=== PATIENT | male | born 1960 | race Caucasian/White ===

== ENCOUNTER 2016-11-15 17:56 | Observation (INO) | payer MEDICARE, MEDICAID ==
[2016-11-15] MEDS ORDERED: Morphine 2 MG/ML Syringe IVPUSH ONE (18:08)
--- NOTE | 2016-11-15 18:09 | EDM.PDOC ---
ED HPI GENERAL MEDICAL PROBLEM - General Chief Complaint: Chest Pain Stated Complaint: Chest pain going into L arm Time Seen by Provider: 11/15/16 17:56 Source of Information: Reports: Patient History Limitations: Reports: No Limitations - History of Present Illness INITIAL COMMENTS - FREE TEXT/NARRATIVE: According to patient he has been having precardial chest pain and left shoulder pain for past 1 hr , around 5 PM today. He just had his supper and was sitting on the chair when the pain started.He rates his pain at 8/10. Pain worsen with deep breathing and applying pressure over left chest. Pt claims that he does have history of CAD and has had 2 stent placement in 2010. He did take one S/l nitro 0.4mg and pain was not better and hence here. Pain elicited by cough and deep breathing. No fever or chills. No sweating shortness of breath or diaphoresis. Pt does have mild cough which is chronic and smokes cigarettes and marijuana Onset: Today Onset Date: 11/15/16 Onset Time: 17:00 Location: Reports: Chest Quality: Reports: Ache Severity: Moderate Improves with: Reports: None Worsens with: Reports: None Associated Symptoms: Reports: Chest Pain, Cough. Denies: Confusion, Diaphoresis , Fever/Chills, Headaches, Nausea/Vomiting, Rash, Seizure, Shortness of Breath, Syncope, Weakness Treatments [employer]MENT [employer]CH[employer]ICIAN: Reports: Nitroglycerin - Related Data Allergies Allergy/AdvReac Type Severity Reaction Status Date / Time nickel Allergy Hives Verified 02/06/16 15:21 Penicillins Allergy Rash Verified 02/06/16 15:21 aspirin AdvReac Other Verified 02/06/16 15:21 Home Meds: Home Meds Diltiazem HCl [Cardizem LA] 120 mg PO DAILY 02/06/16 [History] Liothyronine Sodium 25 mcg PO DAILY 02/06/16 [History] Metoprolol Tartrate 50 mg PO BID 02/06/16 [History] Mirtazapine 15 mg PO DAILY 02/06/16 [History] Nitroglycerin [IJP: Nitroglycerin] 0.4 mg SL ASDIRECTED 02/06/16 [History] Sertraline HCl 200 mg PO DAILY 02/06/16 [History] Valsartan/Hydrochlorothiazide [Valsartan-Hctz 320-25 mg Tab] 25 - 320 mg PO DAILY 02/06/16 [History] atorvaSTATin Calcium [Atorvastatin Calcium] 20 mg PO DAILY 02/06/16 [History] buPROPion HCl [Wellbutrin Xl] 300 mg PO DAILY 02/06/16 [History] Past Medical History Cardiovascular History: Reports: [place], Stents Gastrointestinal History: Reports: Other (See Below) Other Gastrointestinal History: heartburn Psychiatric History: Reports: Depression Other Psychiatric History: Has had ECT treatments in [place] Endocrine/Metabolic History: Reports: Diabetes, Type II - Past Surgical History HEENT Surgical History: Reports: Tonsillectomy Cardiovascular Surgical History: Reports: None Social & Family History - Family History Cardiac: Reports: Afib, [place], Stent GI: Reports: Diverticulitis, Other (See Below) Other GI Family History: appy : Reports: None OBGYN: Reports: None Psychiatric: Reports: Anxiety, Depression Endocrine/Metabolic: Reports: Diabetes, type II - Tobacco Use Smoking Status *Q: Current Every Day Smoker Years of Tobacco use: 45 Packs/Tins Daily: 1 - Recreational Drug Use Recreational Drug Use: Yes Drug Use in Last 12 Months: Yes Recreational Drug Type: Reports: Marijuana/Hashish Recreational Drug Use Frequency: Monthly ED ROS GENERAL - Review of Systems Review Of Systems: See Below Constitutional: Denies: Fever, Chills, Fatigue, Night Sweats, Diaphoresis HEENT: Denies: Rhinitis, Sinus Problem, Vision Change Respiratory: Reports: Pleuritic Chest Pain, Cough. Denies: Shortness of Breath , Wheezing, Sputum Cardiovascular: Reports: Chest Pain. Denies: Lightheadedness GI/Abdominal: Denies: Abdominal Pain, Nausea, Vomiting : Denies: Dysuria, Flank Pain, Frequency Musculoskeletal: Reports: Shoulder Pain (left ). Denies: Joint Pain, Joint Swelling Skin: Denies: Pruritis, Rash Neurological: Denies: Confusion, Dizziness, Headache, Seizure, Syncope, Weakness ED EXAM, GENERAL - Physical Exam Exam: See Below Exam Limited By: No Limitations General Appearance: Alert, WD/WN, No Apparent Distress, Other (pt appear comfortable rates his pain at 8/10) Eye Exam: Bilateral Eye: EOMI, PERRL Ears: Normal External Exam, Normal Canal, Hearing Grossly Normal, Normal TMs Ear Exam: Bilateral Ear: Auricle Normal, Canal Normal, TM normal Nose: Normal Inspection, Normal Mucosa, No Blood Throat/Mouth: Normal Inspection, Normal Lips, Normal Teeth, Normal Gums, Normal Oropharynx, Normal Voice, No Airway Compromise Head: Atraumatic, Normocephalic Neck: Normal Inspection, Supple, Non-Tender, Full Range of Motion Respiratory/Chest: No Respiratory Distress, Lungs Clear, Normal Breath Sounds, No Accessory Muscle Use, Other (Chest is tender over the lower costochondral junction to pressure.) Cardiovascular: Normal Peripheral Pulses, Regular Rate, Rhythm, No Edema, No Gallop, No JVD, No Murmur, No Rub Peripheral Pulses: 2+: Carotid (L), Carotid (R), Radial (L), Radial (R) GI/Abdominal: Normal Bowel Sounds, Soft, Non-Tender, No Organomegaly, No Distention, No Abnormal Bruit, No Mass Extremities: Normal Inspection, Normal Range of Motion, Non-Tender, Normal Capillary Refill, No Pedal Edema Neurological: Alert, Oriented, CN II-XII Intact, Normal Cognition, Normal Gait, Normal Reflexes, No Motor/Sensory Deficits Skin Exam: Warm, Intact EKG INTERPRETATION EKG Date: 11/15/16 Rhythm: NSR [place]: Normal P-Wave: Present QRS: Normal ST-T: Normal QT: Normal Course - Vital Signs Text/Narrative:: EKG is in normal sinus rhythm. His vitals are stable. He does have elicitable chest pain with pressure over the left lower sterno-chondral junctions and pain worsens with deep breathing. he probably has costo-chondritis. He did receive Morphine 4mg IV and that did help with pain, now rate his pain at 5/10. His CBC and CMP are normal his troponin is negative. Considering that he has CAD and also has had stent placement in the past,will admit for observation and repeat second set of troponin in 6 hrs and followup. Last Recorded V/S: Last Vital Signs Temp 98 F 11/15/16 18:42 Pulse 60 11/15/16 18:42 Resp 20 11/15/16 18:42 BP 143/90 H 11/15/16 18:15 Pulse Ox 97 11/15/16 18:42 - Orders/Labs/Meds Orders: Active Orders 24 hr Category Date Time Status EKG Documentation Completion [RC] ASDIRECTED Care 11/15/16 18:04 Active Chest 1V Frontal [CR] Stat Exams 11/15/16 18:04 Taken Labs: Laboratory Tests 11/15/16 11/15/16 11/15/16 Range/Units 18:00 18:00 18:00 WBC 8.8 D (4.0-11.0) K/uL RBC 5.63 (4.50-6.50) M/uL Hgb 17.0 (13.0-18.0) g/dL Hct 48.7 (40.0-54.0) % MCV 87 (76-96) fL MCH 30.2 (27.0-32.0) pg MCHC 34.9 (31.0-35.0) g/dL RDW 14.6 (11.0-16.0) % Plt Count 203 (150-400) K/uL MPV 8.8 (6.0-10.0) fL Neut % (Auto) 58.8 (45.0-70.0) % Lymph % (Auto) 31.1 (20.0-40.0) % [place] % (Auto) 6.8 (3.0-10.0) % Eos % (Auto) 2.3 (1.0-5.0) % Baso % (Auto) 1.0 H (0.0-0.5) % Neut # (Auto) 5.15 (2.00-7.50) K/uL Lymph # (Auto) 2.72 (1.50-4.00) K/uL [place] # (Auto) 0.60 (0.20-0.80) K/uL Eos # (Auto) 0.20 (0.04-0.40) K/uL Baso # (Auto) 0.09 (0.02-0.10) K/uL PT 10.5 (9.0-11.5) sec INR 1.0 (1.0-3.5) APTT 22.8 L (27.0-35.0) SECONDS Sodium 136 (136-145) mmol/L Potassium 3.4 L (3.5-5.1) mmol/L Chloride 99 (98-107) mmol/L Carbon Dioxide 27.4 (21.0-32.0) mmol/L Anion Gap 13.0 (5.0-15.0) mmol/L BUN 19 (8-26) mg/dL Creatinine 1.27 (0.70-1.30) mg/dL Est Cr Clr Drug Dosing 62.09 mL/min Estimated GFR (MDRD) 58 L (>60) MLS/MIN BUN/Creatinine Ratio 15.0 (6-25) Glucose 169 H D (74-100) mg/dL Calcium 9.0 (8.5-10.1) mg/dL Total Bilirubin 0.3 (0.0-1.0) mg/dL AST 56 H (15-37) U/L ALT 80 H (12-78) U/L Alkaline Phosphatase 123 H (46-116) U/L Troponin I (0.000-0.060) ng/mL Total Protein 7.1 (6.4-8.2) g/dL Albumin 3.6 (3.4-5.0) g/dL Globulin 3.5 (2.2-4.2) g/dL Albumin/Globulin Ratio 1.0 (0.8-2.0) //17 Range/Units 18:00 WBC (4.0-11.0) K/uL RBC (4.50-6.50) M/uL Hgb (13.0-18.0) g/dL Hct (40.0-54.0) % MCV (76-96) fL MCH (27.0-32.0) pg MCHC (31.0-35.0) g/dL RDW (11.0-16.0) % Plt Count (150-400) K/uL MPV (6.0-10.0) fL Neut % (Auto) (45.0-70.0) % Lymph % (Auto) (20.0-40.0) % [place] % (Auto) (3.0-10.0) % Eos % (Auto) (1.0-5.0) % Baso % (Auto) (0.0-0.5) % Neut # (Auto) (2.00-7.50) K/uL Lymph # (Auto) (1.50-4.00) K/uL [place] # (Auto) (0.20-0.80) K/uL Eos # (Auto) (0.04-0.40) K/uL Baso # (Auto) (0.02-0.10) K/uL PT (9.0-11.5) sec INR (1.0-3.5) APTT (27.0-35.0) SECONDS Sodium (136-145) mmol/L Potassium (3.5-5.1) mmol/L Chloride (98-107) mmol/L Carbon Dioxide (21.0-32.0) mmol/L Anion Gap (5.0-15.0) mmol/L BUN (8-26) mg/dL Creatinine (0.70-1.30) mg/dL Est Cr Clr Drug Dosing mL/min Estimated GFR (MDRD) (>60) MLS/MIN BUN/Creatinine Ratio (6-25) Glucose (74-100) mg/dL Calcium (8.5-10.1) mg/dL Total Bilirubin (0.0-1.0) mg/dL AST (15-37) U/L ALT (12-78) U/L Alkaline Phosphatase (46-116) U/L Troponin I < 0.017 (0.000-0.060) ng/mL Total Protein (6.4-8.2) g/dL Albumin (3.4-5.0) g/dL Globulin (2.2-4.2) g/dL Albumin/Globulin Ratio (0.8-2.0) Meds: Medications Discontinued Medications Generic Name Dose Route Start Last Admin Trade Name Arunq PRN Reason Stop Dose Admin Morphine Sulfate 4 mg 11/15/16 18:08 Morphine IVPUSH 11/15/16 18:09 ONETIME ONE Departure - Departure Time of Disposition: 18:45 Disposition: Refer to Observation Condition: Fair Clinical Impression: Chest pain - Discharge Information - Problem List & Annotations (1) Chest pain SNOMED Code(s): 10378268 Code(s): R07.9 - CHEST PAIN, UNSPECIFIED Status: Acute Current Visit: Yes - Problem List Review Problem List Initiated/Reviewed/Updated: Yes - My Orders Last 24 Hours: My Active Orders 11/15/16 18:04 EKG Documentation Completion [RC] ASDIRECTED Chest 1V Frontal [CR] Stat - Assessment/Plan Last 24 Hours: My Active Orders 11/15/16 18:04 EKG Documentation Completion [RC] ASDIRECTED Chest 1V Frontal [CR] Stat Assessment:: Chest pain with costochondritis Plan: EKG is in normal sinus rhythm. His vitals are stable. He does have elicitable chest pain with pressure over the left lower sterno-chondral junctions and pain worsens with deep breathing. he probably has costo-chondritis. He did receive Morphine 4mg IV and that did help with pain, now rate his pain at 5/10. His CBC and CMP are normal his troponin is negative. Considering that he has CAD and also has had stent placement in the past,will admit for observation and repeat second set of troponin in 6 hrs and followup.
[2016-11-15] MEDS ORDERED: Sodium Chloride 0.9% 10 ML Syringe FLUSH PRN (18:50)
[2016-11-15] MEDS ORDERED: Heparin Sodium 5,000 Units/ML Vial ONE (23:15)
[2016-11-15] MEDS ORDERED: Heparin Sodium 1,000 Units/ML 10 ML MDV ONE (23:16)
[2016-11-15] MEDS ORDERED: Aspirin 81 MG Tab.Chew ONE (23:19)
[2016-11-15] MEDS ORDERED: Clopidogrel 75 MG Tab ONE (23:27)
[2016-11-15] MEDS ORDERED: Metoprolol Tartrate 25 MG Tab ONE (23:28)
[2016-11-15] MEDS ORDERED: Heparin Sodium 5,000 UNITS/0.5 ML Syringe IVPUSH ONE (23:38)
[2016-11-15] MEDS ORDERED: Clopidogrel 75 MG Tab PO ONE (23:38)
[2016-11-15] MEDS ORDERED: Heparin Sodium/D5W 25,000 UNITS/500 ML BAG IV SCH (23:45)
--- NOTE | 2016-11-15 23:56 | PCM.DCSUM1 ---
Discharge Summary - Hospital Course Free Text/Narrative:: Pt was admitted for observation. His initial troponin was negative and his EKG in Sinus rhythm.He does have elicitable chest pain over the left side of the chest which does appear like costochondritis. But considering his history of CAD with stent placement and post prandial chest pain, I did admit him for serial troponins. His pain did improve with Morphine 4mg IV to 5/10 and later was down to 2-3/10. He has been in sinus rhythm on the monitor His repeat troponin at 11 pm is elevated at 0.9 His repeat EKG is in normal sinus rhythm. His vitals are stable. He is in sinus rhythm all through the hospital stay.Pt has Non-stemi. Pt did receive plavix 300mg. Metoprolol 12.5mg oral. He did receive heparin 5000 units Iv followed by 1000units /hr.I did call [facility], discuss patient with hospitalist , who has agreed to accept patient. Pt is hemodynamically stable for transfer. He will be transferrred by [facility] ambulance . Further care as per Dr. Saunders. Brief History: 56 year old male presented to emerency room with chest pain around 5 pm today. Intial torponin negative. Admitted under observation for serial cardiac enzymes. - Discharge Data Discharge Date: 11/15/16 Discharge Disposition: DC/Tfer to Acute Hospital 02 Condition: Serious - Discharge Diagnosis/Problem(s) (1) Chest pain SNOMED Code(s): 07475181 ICD Code: R07.9 - CHEST PAIN, UNSPECIFIED Status: Acute Current Visit: Yes - Patient Instructions Diet: NPO Activity: Bedrest - Discharge Plan Home Medications: Home Meds Diltiazem HCl [Cardizem LA] 120 mg PO DAILY 02/06/16 [History] Liothyronine Sodium 25 mcg PO DAILY 02/06/16 [History] Metoprolol Tartrate 50 mg PO BID 02/06/16 [History] Mirtazapine 15 mg PO DAILY 02/06/16 [History] Nitroglycerin [IJP: Nitroglycerin] 0.4 mg SL ASDIRECTED 02/06/16 [History] Sertraline HCl 200 mg PO DAILY 02/06/16 [History] Valsartan/Hydrochlorothiazide [Valsartan-Hctz 320-25 mg Tab] 25 - 320 mg PO DAILY 02/06/16 [History] atorvaSTATin Calcium [Atorvastatin Calcium] 20 mg PO DAILY 02/06/16 [History] buPROPion HCl [Wellbutrin Xl] 300 mg PO DAILY 02/06/16 [History] Forms: ED Department Discharge - Discharge Summary/Plan Comment DC Time >30 min.: Yes Discharge Summary/Plan Comment: Pt has been transferred by road ambulance to [facility] under car of - General Info Date of Service: 11/16/16 Functional Status: Reports: pain controlled - Review of Systems General: Denies: Fever, Weakness HEENT: Denies: visual changes Pulmonary: Denies: shortness of breath, pleuritic chest pain, cough, sputum, hemoptysis, wheezing Cardiovascular: Reports: Chest Pain. Denies: Lightheadedness Gastrointestinal: Denies: Abdominal pain, Nausea, Vomiting Genitourinary: Denies: dysuria, frequency Musculoskeletal: Denies: joint pain, joint swelling Skin: Denies: pruritis, rash Neurological: Denies: Confusion, Headache, Seizure - Patient Data Vitals - Most Recent: Last Vital Signs Temp 98.1 F 11/15/16 18:50 Pulse 65 11/15/16 18:50 Resp 18 11/15/16 18:50 BP 146/87 H 11/15/16 18:50 Pulse Ox 100 11/15/16 18:50 Weight - Most Recent: 113.398 kg Lab Results - Last 24 hrs: Laboratory Results - last 24 hr 11/15/16 Range/Units 22:45 Troponin I 0.955 H* D (0.000-0.060) ng/mL Med Orders - Current: Current Medications Heparin Sodium/Dextrose (Heparin 25,000 Units In D5w 500 Ml) 25,000 units in 500 mls @ 2,267.962 mls/hr IV STAT MILENA; 1,000 UNITS/KG/HR PRN Reason: Protocol Sodium Chloride (Saline Flush) 10 ml FLUSH ASDIRECTED PRN PRN Reason: Keep Vein Open Discontinued Medications Aspirin (Aspirin) Confirm Administered Dose 324 mg .ROUTE .STK-MED ONE Stop: 11/15/16 23:20 Clopidogrel Bisulfate (Plavix) Confirm Administered Dose 75 mg .ROUTE .STK-MED ONE Stop: 11/15/16 23:28 Clopidogrel Bisulfate (Plavix) 300 mg PO ONETIME ONE Stop: 11/15/16 23:39 Heparin Sodium (Porcine) (Heparin Sodium) Confirm Administered Dose 5,000 units .ROUTE .STK-MED ONE Stop: 11/15/16 23:16 Heparin Sodium (Porcine) (Heparin Sodium) Confirm Administered Dose 10,000 units .ROUTE .STK-MED ONE Stop: 11/15/16 23:17 Heparin Sodium (Porcine) (Heparin Sodium) 5,000 units IVPUSH ONETIME ONE Stop: 11/15/16 23:39 Metoprolol Tartrate (Lopressor) Confirm Administered Dose 25 mg .ROUTE .STK-MED ONE Stop: 11/15/16 23:29 Morphine Sulfate (Morphine) 4 mg IVPUSH ONETIME ONE Stop: 11/15/16 18:09 - Exam Quality Assessment: Reports: supplemental oxygen General: Reports: alert, oriented HEENT: Reports: Pupils equal, Pupils reactive, EOMI, Mucous membr. moist/pink Neck: Reports: supple Lungs: Reports: Clear to auscultation, Normal respiratory effort Cardiovascular: Reports: Regular Rate, Regular Rhythm Abdomen: Reports: bowel sounds present, soft, no tenderness, no distension Back Exam: Reports: Normal Inspection, Full Range of Motion Extremities: Reports: no edema, normal pulses Skin: Reports: warm, dry, intact *Q Meaningful Use (DIS) - VTE *Q VTE Criteria *Q: - Stroke *Q Stroke Criteria *Q: - AMI *Q AMI Criteria *Q:
[2016-11-16 00:17] VITALS: BP 153/98
[2016-11-16] MEDS ORDERED: Nicotine 21 MG/24 Hr Patch ONE (00:30)
[2016-11-16] MEDS ORDERED: Morphine 10 MG/ML Syringe ONE ×3 (00:37→02:00)
[2016-11-16] MEDS ORDERED: Heparin Sodium/D5W 500 ML ONE (01:52)
[2016-11-16] MEDS ORDERED: Heparin Sodium 5,000 Units/ML Vial ONE (01:52)
[2016-11-16] MEDS ORDERED: Nitroglycerin 0.4 MG Tab.SL ONE (02:00)
--- NOTE | 2016-11-16 10:05 | CR ---
DATE OF SERVICE: 11/15/16 CLINICAL DATA: chest pain FRONTAL VIEW OF THE CHEST: Comparison is made to a prior exam dated March of 2012. The heart size is normal. The aorta is ectatic. There is some minimal increased density in the left lung base adjacent to the left hemidiaphragm consistent with basilar atelectasis or infiltrate. The lungs are otherwise clear. No pneumothorax. No pleural effusions. No areas of consolidation. No other significant findings. [id number] [facility]
== END 2016-11-16 01:05 ==
LOC: LB.ED 17:56 → LB.MS 18:35
PROVIDERS: ADMIT Family Medicine; ATTEND Family Medicine
DX: R07.89 Other chest pain (principal); I25.2 Old myocardial infarction; I25.10 Atherosclerotic heart disease of native coronary artery without angina pectoris; R94.31 Abnormal electrocardiogram [ECG] [EKG]; E11.9 Type 2 diabetes mellitus without complications; F32.9 Major depressive disorder, single episode, unspecified; R05 Cough; F17.210 Nicotine dependence, cigarettes, uncomplicated; Z95.5 Presence of coronary angioplasty implant and graft; Z79.01 Long term (current) use of anticoagulants; Z79.899 Other long term (current) drug therapy; M25.512 Pain in left shoulder; Z88.0 Allergy status to penicillin; Z88.6 Allergy status to analgesic agent; Z91.048 Other nonmedicinal substance allergy status; Z98.890 Other specified postprocedural states; Z82.49 Family history of ischemic heart disease and other diseases of the circulatory system
CPT/HCPCS: 36415; 71010; 80053; 84484; 85025; 85610; 85730; 93005; 96374; 96376; 99217; 99220; 99285; A0425; A0429; A9270; G0378; J1644; J2270; J7050

== ENCOUNTER 2022-01-17 00:19 | Emergency (ER) | payer MEDICARE, MEDICAID ==
[2022-01-17] MEDS ORDERED: Sodium Chloride 0.9% 10 ML Syringe FLUSH PRN (01:24)
[2022-01-17] MEDS ORDERED: Metoprolol Tartrate 5 MG/5 ML SDV IVPUSH ONE (01:31)
[2022-01-17 01:47] LABS: ESTIMATED GFR 82 mL/min (>60)
[2022-01-17 02:29] VITALS: BP 184/106; PULSE 65
== END 2022-01-17 02:45 ==
LOC: LB.ED 00:19
DX: R29.810 Facial weakness (principal); R53.1 Weakness; I25.2 Old myocardial infarction; E11.9 Type 2 diabetes mellitus without complications; Z88.0 Allergy status to penicillin; Z88.8 Allergy status to other drugs, medicaments and biological substances; Z79.899 Other long term (current) drug therapy; Z20.822 Contact with and (suspected) exposure to COVID-19
CPT/HCPCS: 36415; 70450; 80053; 83735; 85025; 85610; 85730; 93005; 93010; 96374; 99285; 99285-25; A0425; A0429; J3490; U0002

== ENCOUNTER 2023-01-01 09:48 | Emergency (ER) | payer MEDICARE, MEDICAID ==
[2023-01-01] MEDS ORDERED: Sodium Chloride 0.9% 10 ML Syringe FLUSH PRN (10:07)
[2023-01-01 10:34] LABS: BASOPHILS ABSOLUTE AUTO 0.05 K/uL (0.02-0.10); BASOPHILS PERCENT AUTO 0.5 % (0.0-0.5); EOSINOPHILS ABSOLUTE AUTO 0.08 K/uL (0.04-0.40); EOSINOPHILS PERCENT AUTO 0.7 % (1.0-5.0); HEMATOCRIT 47.5 % (40.0-54.0); HEMOGLOBIN 16.6 g/dL (13.0-18.0); LYMPHOCYTES ABSOLUTE AUTO 1.86 K/uL (1.50-4.00); LYMPHOCYTES PERCENT AUTO 16.8 % (20.0-40.0); MEAN CORPUSCULAR HEMOGLOBIN 30.2 pg (27.0-32.0); MEAN CORPUSCULAR HGB CONC 34.9 g/dL (31.0-35.0); MEAN CORPUSCULAR VOLUME 86 fL (76-96); MEAN PLATELET VOLUME 8.8 fL (6.0-10.0); MONOCYTES PERCENT AUTO 4.5 % (3.0-10.0); NEUTROPHILS ABSOLUTE AUTO 8.55 K/uL (2.00-7.50); NEUTROPHILS PERCENT AUTO 77.5 % (45.0-70.0); PLATELET COUNT,PLT 191 K/uL (150-400); RED CELL DISTRIBUTION WIDTH 13.6 % (11.0-16.0)
[2023-01-01 10:57] LABS: A/G RATIO 1.2 (0.8-2.0); ANION GAP 15.4 mmol/L (5.0-15.0); BILIRUBIN TOTAL 0.5 mg/dL (0.0-1.0); BUN/CREATININE RATIO 13.5 (6-25); CALCIUM 9.4 mg/dL (8.5-10.1); CARBON DIOXIDE,CO2 25.8 mmol/L (21.0-32.0); CREATININE 0.96 mg/dL (0.70-1.30); EST CRCL DRUG DOSING (CG) 76.2 mL/min; MAGNESIUM 2.1 mg/dL (1.8-2.4); POTASSIUM,K 4.2 mmol/L (3.5-5.1); PROTEIN TOTAL,TP 7.4 g/dL (6.4-8.2)
[2023-01-01 10:58] LABS: TROPONIN I HIGH SENSITIVITY 601.8 pg/ml (<=60.4)
[2023-01-01 11:03] VITALS: PULSE 62
[2023-01-01] MEDS: Nitroglycerin 0.4 MG Tab.SL SL PRN ×2 (11:09→11:14)
[2023-01-01 11:15] VITALS: BP 181/88
[2023-01-01] MEDS ORDERED: Heparin Sodium 5,000 Units/ML Vial SUBCUT ONE (11:27)
[2023-01-01] MEDS ORDERED: Heparin Sodium 1,000 Units/ML 10 ML MDV SUBCUT ONE (11:30)
== END 2023-01-01 12:05 ==
LOC: LB.ED 09:48
DX: I21.4 Non-ST elevation (NSTEMI) myocardial infarction (principal); E11.9 Type 2 diabetes mellitus without complications; Z95.5 Presence of coronary angioplasty implant and graft; Z79.899 Other long term (current) drug therapy; Z88.0 Allergy status to penicillin; Z91.048 Other nonmedicinal substance allergy status
CPT/HCPCS: 36415; 80053; 83735; 84484; 85025; 93005; 93010; 96372; 99285; A0425; A0429; J1644

== ENCOUNTER 2023-03-30 12:41 | Observation (INO) | payer MEDICARE, MEDICAID ==
[2023-03-30] MEDS ORDERED: Sodium Chloride 0.9% 10 ML Syringe FLUSH PRN (13:19)
[2023-03-30] MEDS ORDERED: Labetalol 100 MG/20 ML MDV IVPUSH ONE (13:24)
[2023-03-30 13:30] LABS: BASOPHILS ABSOLUTE AUTO 0.06 K/uL (0.02-0.10); BASOPHILS PERCENT AUTO 0.8 % (0.0-0.5); EOSINOPHILS ABSOLUTE AUTO 0.29 K/uL (0.04-0.40); EOSINOPHILS PERCENT AUTO 3.6 % (1.0-5.0); HEMATOCRIT 48.2 % (40.0-54.0); LYMPHOCYTES ABSOLUTE AUTO 2.26 K/uL (1.50-4.00); LYMPHOCYTES PERCENT AUTO 28.4 % (20.0-40.0); MEAN CORPUSCULAR HEMOGLOBIN 30.4 pg (27.0-32.0); MEAN CORPUSCULAR HGB CONC 35.3 g/dL (31.0-35.0); MEAN CORPUSCULAR VOLUME 86 fL (76-96); MEAN PLATELET VOLUME 9.2 fL (6.0-10.0); MONOCYTES ABSOLUTE AUTO 0.67 K/uL (0.20-0.80); MONOCYTES PERCENT AUTO 8.4 % (3.0-10.0); NEUTROPHILS ABSOLUTE AUTO 4.69 K/uL (2.00-7.50); NEUTROPHILS PERCENT AUTO 58.8 % (45.0-70.0); PLATELET COUNT,PLT 177 K/uL (150-400); RED BLOOD CELL COUNT 5.59 M/uL (4.50-6.50); RED CELL DISTRIBUTION WIDTH 13.5 % (11.0-16.0)
[2023-03-30 13:48] LABS: A/G RATIO 1.2 (0.8-2.0); ANION GAP 15.4 mmol/L (5.0-15.0); BILIRUBIN TOTAL 0.4 mg/dL (0.0-1.0); BUN/CREATININE RATIO 19.1 (6-25); CALCIUM 8.9 mg/dL (8.5-10.1); CARBON DIOXIDE,CO2 24.2 mmol/L (21.0-32.0); CREATININE 0.89 mg/dL (0.70-1.30); EST CRCL DRUG DOSING (CG) 82.19 mL/min; MAGNESIUM 2.2 mg/dL (1.8-2.4); POTASSIUM,K 3.6 mmol/L (3.5-5.1); PROTEIN TOTAL,TP 7.4 g/dL (6.4-8.2); TROPONIN I HIGH SENSITIVITY 12.1 pg/ml (<=60.4)
[2023-03-30] MEDS ORDERED: Ketorolac 60 MG/2 ML SDV IVPUSH ONE (14:04)
[2023-03-30] MEDS ORDERED: Acetaminophen 500 MG Tab PO ONE (14:05)
[2023-03-30] MEDS ORDERED: Acetaminophen 500 MG Tab ONE (14:08)
[2023-03-30] MEDS ORDERED: Ketorolac 30 MG/ML SDV ONE (14:08)
[2023-03-30 14:13] LABS: APPEARANCE,URINE CLEAR (CLEAR); BILIRUBIN,URINE NEGATIVE (NEGATIVE); COLOR,URINE YELLOW; GLUCOSE,URINE NEGATIVE (NEGATIVE); KETONES,URINE NEGATIVE (NEGATIVE); LEUKOCYTE ESTERASE,URINE SMALL (NEGATIVE); NITRITE,URINE NEGATIVE (NEGATIVE); OCCULT BLOOD,URINE NEGATIVE (NEGATIVE); PROTEIN,URINE NEGATIVE (NEGATIVE); UROBILINOGEN,URINE 0.2 E.U./dL (0.2-1.0)
[2023-03-30 14:15] LABS: RBC,URINE 0-5 /HPF
[2023-03-30] MEDS: Lisinopril 20 MG Tab PO SCH (14:19)
[2023-03-30] MEDS ORDERED: Nitroglycerin 0.4 MG Tab.SL SL SCH (14:30)
[2023-03-30] MEDS: atorvaSTATin 20 MG Tab PO SCH (16:01)
[2023-03-30] MEDS ORDERED: atorvaSTATin 20 MG Tab ONE (16:02)
[2023-03-30] MEDS: Multivitamins with Iron/Calcium/Folic Acid/Minerals Tab PO SCH (16:03)
[2023-03-30] MEDS ORDERED: Acetaminophen 325 MG Tab PO PRN (16:12)
[2023-03-30] MEDS: Nicotine 21 MG/24 Hr Patch TRDERM SCH (16:29)
[2023-03-31] MEDS ORDERED: atorvaSTATin 80 MG Tab PO SCH (08:00)
[2023-03-31] MEDS: Nicotine 21 MG/24 Hr Patch TRDERM SCH (08:32)
[2023-03-31] MEDS: Multivitamins with Iron/Calcium/Folic Acid/Minerals Tab PO SCH (08:32)
[2023-03-31] MEDS: Lisinopril 20 MG Tab PO SCH (08:33)
[2023-03-31] MEDS: atorvaSTATin 20 MG Tab PO SCH (08:36)
[2023-03-31 08:43] VITALS: PULSE 69
[2023-03-31] MEDS ORDERED: amLODIPine 5 MG Tab PO SCH (09:30)
[2023-03-31 10:07] VITALS: BP 183/94
== END 2023-03-31 11:57 | disposition home or self-care (01) ==
LOC: LB.ED 12:41 → LB.MS 14:16
PROVIDERS: ADMIT Nurse Practitioner Family; ATTEND Nurse Practitioner Family
DX: R51.9 Headache, unspecified (principal); R47.81 Slurred speech; I16.1 Hypertensive emergency; I10 Essential (primary) hypertension; E78.00 Pure hypercholesterolemia, unspecified; I25.2 Old myocardial infarction; K21.9 Gastro-esophageal reflux disease without esophagitis; E11.9 Type 2 diabetes mellitus without complications; G47.30 Sleep apnea, unspecified; Z88.0 Allergy status to penicillin; Z91.048 Other nonmedicinal substance allergy status; Z86.73 Personal history of transient ischemic attack (TIA), and cerebral infarction without residual deficits; Z79.899 Other long term (current) drug therapy
CPT/HCPCS: 36415; 70450; 80053; 81001; 83735; 84484; 85025; 87086; 93005; 96374; 96375; 99285; A9270; J1885; 93010; 99222; 99239; G0378

== ENCOUNTER 2023-05-25 19:12 | Observation (INO) | payer MEDICARE, MEDICAID ==
[2023-05-25] MEDS ORDERED: Sodium Chloride 0.9% 10 ML Syringe FLUSH PRN (19:35)
[2023-05-25 19:43] LABS: BASOPHILS ABSOLUTE AUTO 0.08 K/uL (0.02-0.10); BASOPHILS PERCENT AUTO 0.7 % (0.0-0.5); EOSINOPHILS PERCENT AUTO 3.6 % (1.0-5.0); HEMOGLOBIN 15.7 g/dL (13.0-18.0); LYMPHOCYTES ABSOLUTE AUTO 3.17 K/uL (1.50-4.00); LYMPHOCYTES PERCENT AUTO 28.8 % (20.0-40.0); MEAN CORPUSCULAR HEMOGLOBIN 30.2 pg (27.0-32.0); MEAN CORPUSCULAR HGB CONC 34.9 g/dL (31.0-35.0); MEAN CORPUSCULAR VOLUME 87 fL (76-96); MEAN PLATELET VOLUME 9.1 fL (6.0-10.0); MONOCYTES ABSOLUTE AUTO 0.67 K/uL (0.20-0.80); MONOCYTES PERCENT AUTO 6.1 % (3.0-10.0); NEUTROPHILS ABSOLUTE AUTO 6.68 K/uL (2.00-7.50); NEUTROPHILS PERCENT AUTO 60.8 % (45.0-70.0); PLATELET COUNT,PLT 236 K/uL (150-400); RED CELL DISTRIBUTION WIDTH 13.5 % (11.0-16.0)
[2023-05-25 19:50] LABS: APPEARANCE,URINE SLIGHTLY CLOUDY (CLEAR); BILIRUBIN,URINE SMALL (NEGATIVE); COLOR,URINE YELLOW; GLUCOSE,URINE NEGATIVE (NEGATIVE); KETONES,URINE NEGATIVE (NEGATIVE); LEUKOCYTE ESTERASE,URINE NEGATIVE (NEGATIVE); NITRITE,URINE NEGATIVE (NEGATIVE); OCCULT BLOOD,URINE TRACE-INTACT (NEGATIVE); PROTEIN,URINE >=300 mg/dL (NEGATIVE); UROBILINOGEN,URINE 0.2 E.U./dL (0.2-1.0)
[2023-05-25 19:52] LABS: INR 1.1 (1.0-3.5); PTT,PARTIAL THROMBOPLSTIN TIME 24.7 SECONDS (24.4-33.2)
[2023-05-25 19:53] LABS: CREATININE 1.29 mg/dL (0.70-1.30); POTASSIUM,K 3.4 mmol/L (3.5-5.1)
[2023-05-25] MEDS ORDERED: Clopidogrel 75 MG Tab PO ONE (19:56)
[2023-05-25 20:01] LABS: RBC,URINE 0-5 /HPF; WBC,URINE 0-5 /HPF
[2023-05-25 20:02] LABS: HYALINE CASTS,URINE FEW /HPF; MUCUS,URINE MODERATE /HPF
[2023-05-25 20:06] LABS: A/G RATIO 1.1 (0.8-2.0); ALBUMIN 3.7 g/dL (3.4-5.0); ANION GAP 17.5 mmol/L (5.0-15.0); BILIRUBIN TOTAL 0.5 mg/dL (0.0-1.0); BUN/CREATININE RATIO 10.1 (6-25); CALCIUM 8.9 mg/dL (8.5-10.1); CARBON DIOXIDE,CO2 22.9 mmol/L (21.0-32.0); PROTEIN TOTAL,TP 7.1 g/dL (6.4-8.2)
[2023-05-25 20:07] LABS: EST CRCL DRUG DOSING (CG) 55.97 mL/min
[2023-05-25] MEDS ORDERED: Acetaminophen 325 MG Tab PO PRN (21:27)
[2023-05-25] MEDS ORDERED: Nitroglycerin 0.4 MG Tab.SL SL PRN (21:30)
[2023-05-25] MEDS ORDERED: Nicotine 21 MG/24 Hr Patch ONE (21:31)
[2023-05-25] MEDS: Nicotine 21 MG/24 Hr Patch TRDERM SCH (21:33)
[2023-05-26] MEDS ORDERED: Lisinopril 10 MG Tab PO SCH (08:00)
[2023-05-26] MEDS ORDERED: Clopidogrel 75 MG Tab PO SCH (08:00)
[2023-05-26] MEDS ORDERED: Aspirin 325 MG Tab.EC PO SCH (08:00)
[2023-05-26] MEDS ORDERED: amLODIPine 5 MG Tab PO SCH (08:00)
[2023-05-26] MEDS ORDERED: atorvaSTATin 20 MG Tab PO SCH (08:00)
[2023-05-26] MEDS ORDERED: Potassium Chloride 10 MEQ Tab.ER PO ONE (08:21)
[2023-05-26] MEDS ORDERED: Potassium Chloride 10 MEQ Tab.ER ONE (08:24)
[2023-05-26] MEDS: Nicotine 21 MG/24 Hr Patch TRDERM SCH (08:33)
[2023-05-26 10:45] VITALS: BP 146/86; PULSE 72
== END 2023-05-26 10:41 | disposition home or self-care (01) ==
LOC: LB.ED 19:12 → LB.MS 20:15
PROVIDERS: ADMIT Surgery; ATTEND Surgery
DX: G45.9 Transient cerebral ischemic attack, unspecified (principal); I10 Essential (primary) hypertension; I73.9 Peripheral vascular disease, unspecified; I25.10 Atherosclerotic heart disease of native coronary artery without angina pectoris; I25.2 Old myocardial infarction; F17.200 Nicotine dependence, unspecified, uncomplicated; Z79.82 Long term (current) use of aspirin; Z79.02 Long term (current) use of antithrombotics/antiplatelets; Z79.899 Other long term (current) drug therapy
CPT/HCPCS: 36415; 70450; 80053; 81001; 84484; 85025; 85610; 85730; 93005; 99285; A9270; G0378